=== PATIENT | male | born 1945 | race African-American/Black ===

== ENCOUNTER 2016-08-08 17:14 | Inpatient (IN) | payer OTHER ==
[~2016-08-08] VITALS: Ht 177.8 cm; Wt 108.0 kg
--- NOTE | ~2016-08-08 | HC ---
[facility] [place] [address] CONSULTATION Name: CESAR TONG Room #: 421-P ADM IN M.R.#: [id number] Admission: 08/08/16 Attend Phys: Kareen Joyner MD Discharge: Date of : 43 Report #: [id number] THIS REPORT FOR: //name// CC: Susie Baugh DATE OF SERVICE: 08/09/2016 INDICATION: Dyspnea, CAD. HISTORY OF PRESENT ILLNESS: This is a 71-year-old gentleman presenting with complaints of black tarry stools. He was recently admitted 2 months ago for anemia requiring transfusion of packed red blood cells. During that admission, he was noted to have minimally elevated troponin levels. A nuclear stress test revealed inferior wall infarct with moderate ischemia, ejection fraction of 40%. Mild aortic stenosis and mild mitral regurgitation is noted. At that time, conservative therapy was recommended and a GI workup was deferred for an outpatient setting. He now returns with complaints of black tarry stools with a hemoglobin of 7.4. His last hemoglobin was 9.2 approximately 2 weeks ago. He offers no cardiac complaints of angina, PND or orthopnea. He does have dyspnea with mild to moderate levels of physical exertion. The etiology is probably multifactorial. There is no history of fever, chills, nausea or diarrhea. PAST MEDICAL HISTORY: Nuclear stress test in June 2016 reveals inferior wall infarct with moderate ischemia. Ejection fraction of 40%. Echo reveals mild aortic stenosis and mild mitral regurgitation. Chronic kidney disease, history of GI bleed, not evaluated yet. History of diabetes mellitus, hypertension, hypercholesterolemia. ALLERGIES: None. MEDICATIONS: Include hydralazine 50 mg 3 times a day, Norvasc 10 mg daily, Lasix 80 mg twice daily, Lipitor 20 mg, aspirin once a day and Coreg 25 mg twice a day. SOCIAL HISTORY: Negative for tobacco use. FAMILY HISTORY: Negative for premature CAD. REVIEW OF SYSTEMS: A full 10-point review of systems performed. Only the pertinent positives and negatives are described in the HPI. PHYSICAL EXAMINATION: VITAL SIGNS: Blood pressure is 140/70, heart rate is 70 beats per minute. GENERAL APPEARANCE: This is a mildly overweight male in no acute respiratory [facility] [address] [place] [address] CONSULTATION Name: CESAR TONG Room #: 421-P ADM IN M.R.#: [id number] Admission: 08/08/16 Attend Phys: Kareen Joyner MD Discharge: Date of : 43 Report #: [id number] distress. HEAD AND EYES: Normocephalic. Sclerae are anicteric. ENT: Oral mucosa moist. NECK: Supple. LUNGS: Clear to auscultation. CARDIAC: Regular rate and rhythm, S1, S2 positive, 1/6 systolic murmur. ABDOMEN: Soft, nontender. Bowel sounds positive. EXTREMITIES: No major joint deformities, 1-2+ bilateral lower extremity edema. LABORATORY VALUES: White count is 11.1, hemoglobin 7.3, sodium is 143, creatinine is 6.5, troponin is negative. ASSESSMENT: 1. Coronary artery disease, abnormal nuclear stress test. He is clinically stable with no symptoms of angina or congestion. The plan is to continue with conservative therapy at this time. Aspirin should be resumed, once it is cleared by GI. 2. Anemia/gastrointestinal bleed. This is his second admission for anemia. He should proceed with a GI evaluation. 3. Chronic kidney disease, as per renal. 4. Hypertension, continue with medications. 5. Hypercholesterolemia, continue with statin therapy. Thank you for allowing me to participate in the care of your patient. <ELECTRONICALLY SIGNED> By: Bashir Lam MD 08/10/16 0831 0853 0010 Bashir Lam MD /nt
--- NOTE | ~2016-08-08 | H ---
[facility] [place] [address] HISTORY AND PHYSICAL Name: CESAR TONG Room #: 421-P ADM IN M.R.#: [id number] Admission: 08/08/16 Attend Phys: Kareen Joyner MD Discharge: Date of : 44 Report #: [id number] THIS REPORT FOR: //name// CC: Susie Baugh DATE OF SERVICE: 08/08/2016 ATTENDING PHYSICIAN: Dr. Jericho Rodrigues. PRIMARY CARE PHYSICIAN: Stefano Baugh DO. CHIEF COMPLAINT: Black stools. HISTORY OF PRESENT ILLNESS: The patient is a 71-year-old male who was just hospitalized here in June for shortness of breath. He was noted to be in acute on chronic renal failure with a creatinine of 7.3. He apparently had been followed outpatient by Nephrology and there had been talks that he may need to be starting dialysis. His previous creatinine in May had been 4.6. His medications were adjusted and his creatinine was slightly improving. He did have some elevation of his troponins and underwent a Lexiscan stress test, which showed an inferior wall DE with moderate ischemia. His EF was around 40%. Cardiology did discuss these findings with the patient and apparently the patient refused a catheterization and only wanted medical therapy. He was continued on aspirin. At some point, he developed GI bleed and was noted to have some anemia with black stools and required a blood transfusion. He was seen by GI who did not want to perform any endoscopy until his cardiac issues got addressed and therefore he was discharged after IV diuresis to home with plans to follow up with GI outpatient. He was also going to be followed by Nephrology and possibly have fistula placement. He did come back for another admission earlier in July for CHF exacerbation, felt to be related to dietary noncompliance. Again, he was diuresed and sent home. His creatinine at the time of discharge on 07/27 was 6.1. He came back in to the ER last night after having three dark black stools. He denied any dizziness or lightheadedness. His hemoglobin was 7.4 and prior to that over a week ago was 9.2 and he has been admitted for further evaluation. He has not had any further stools since arrival. He now states that he would be willing to have a heart catheterization, he says he does not remember ever saying that he refused it in the first place and if it needs to be done prior to an EGD; he is willing to have that done. He denies any upper abdominal pain. He denies any nausea or vomiting. PAST MEDICAL HISTORY: Diabetes, hypertension, chronic kidney disease stage V, pancreatitis, obstructive sleep apnea, hyperlipidemia, GERD. [address] [address] HISTORY AND PHYSICAL Name: CESAR TONG Room #: 421-P [facility] IN M.R.#: [id number] Admission: 08/08/16 Attend Phys: Kareen Joyner MD Discharge: Date of : 43 Report #: [id number] PAST SURGICAL HISTORY: None. ALLERGIES: None. HOME MEDICATIONS: Atorvastatin 20 mg at bedtime, fish oil 1000 mg daily, hydralazine 50 mg t.i.d., carvedilol 25 mg b.i.d., amlodipine 10 mg daily, aspirin 81 mg daily, Lasix 80 mg b.i.d., calcium carbonate 500 mg t.i.d., Pepcid 20 mg daily, Nephrocaps softgel 1 tab daily, vitamin D daily and azathioprine 50 mg daily. SOCIAL HISTORY: The patient is an ex-smoker, having quit 5 years ago after smoking a pack and a half a day for 50 years. Denies any alcohol or drug use. He lives with his . He ambulates independently. FAMILY HISTORY: Significant for end-stage renal disease in his daughter who required kidney transplant. His sister is currently on hemodialysis and another nephew also had kidney transplant. REVIEW OF SYSTEMS: Twelve point review of systems was reviewed with the patient, otherwise negative unless stated in the HPI. PHYSICAL EXAMINATION: GENERAL: The patient is an alert male, in no acute distress. VITAL SIGNS: Temperature is 36.2, heart rate 92, respirations 18, blood pressure is 143/83, oxygen 94% on room air. HEENT: PERRLA. Sclerae are nonicteric. Oral mucosa is pink and moist. NECK: Supple, no JVD noted. CARDIOVASCULAR: Normal S1, S2 with a 3/6 systolic ejection murmur. RESPIRATORY: Breath sounds are clear bilaterally, diminished in both bases. Breathing is nonlabored. VASCULAR: 1+ bilateral lower extremity edema. Pedal pulses are 2+. NEUROLOGIC: The patient is alert and oriented x 3. Speech is clear. He is answering questions appropriately and following commands. No focal deficits noted. LABORATORY DATA AND DIAGNOSTICS: WBC is 8.8, hemoglobin 7.4, platelets 205. Sodium 142, potassium 5.6, BUN 17, creatinine 6.5, glucose is 126. INR is 1.1. LFTs are within normal limits. Lipase is 538. UA is negative. Stool for occult blood is positive. EKG is showing sinus rhythm with no ischemic changes and a chest x-ray is showing mild basilar atelectasis with prominent heart and vascularity. ASSESSMENT AND PLAN: 1. Upper gastrointestinal bleed. The patient was given Protonix bolus in the ER. We will start Protonix drip and GI is consulted. He still needs to undergo an EGD, but apparently it was recommended that he have his heart disease issues [facility] [address] [place] [address] HISTORY AND PHYSICAL Name: CESAR TONG Room #: 421-P ADM IN M.R.#: [id number] Admission: 08/08/16 Attend Phys: Kareen Joyner MD Discharge: Date of : 44 Report #: [id number] addressed first. The patient says this has not . He now says he is willing to undergo a heart catheterization if that is what it would take to have an EGD. In the meantime, we will check serial H and H and monitor for any further signs of bleeding. 2. Acute on chronic anemia. We will follow serial H and H and transfuse blood if his hemoglobin continues to drop. 3. Chronic kidney disease stage V. We will consult Nephrology for further recommendations. 4. Hyperkalemia related to kidney disease, was treated in the ER. We will repeat labs in the morning. 5. Diabetes type 2. Blood sugars are stable. Add sliding scale insulin. His oral hypoglycemics were discontinued recently because of recurrent hypoglycemia. 6. Hypertension. Blood pressure is stable. Continue home meds. 7. Chronic diastolic heart failure. He continues to make urine. Resume oral Lasix when able to take p.o. He is not acutely fluid overloaded. 8. Coronary artery disease with recent abnormal stress test. The patient says he is now willing to have the heart catheterization. So, if this needs to be done prior to EGD, we will go ahead and consult cardiology. His troponin is negative and he denies any chest pain. 9. Obstructive sleep apnea. Continue CPAP as at home. We will continue to follow the patient closely throughout the hospitalization and make changes based on clinical status. <ELECTRONICALLY SIGNED> By: QUANG Tapia 08/11/16 0658 0651 0849 QUANG Tapia /melanie
--- NOTE | ~2016-08-08 | P ---
[facility] [place] [address] PROCEDURE REPORT Name: CESAR TONG Room #: 421-P [facility] IN M.R.#: [id number] Admission: 08/08/16 Attend Phys: Kareen Joyner MD Discharge: 08/12/16 Date of : 44 Report #: [id number] THIS REPORT FOR: //name// CC: Susie Rome MD DATE OF SERVICE: 08/11/2016 PROCEDURE PERFORMED: Upper endoscopy with biopsies and bleeding control. HISTORY OF PRESENT ILLNESS: The patient is a 71-year-old male with history of melanotic type stools, drop in hemoglobin. He has received several transfusions since admission. He does have a history of diabetes and coronary artery disease as well as reflux. Plan is for EGD. DESCRIPTION OF PROCEDURE: The risks and benefits of the procedure were explained to the patient, those risks including but not limited to bleeding, perforation, the risk of sedation. He understood these risks and gave informed consent. Sedation was given using propofol per anesthesia. Next, using a standard [employer] upper endoscope, the scope was placed in the patient's mouth and advanced under direct vision through the esophagus, stomach and into the second portion of the duodenum. The esophagus was normal throughout. The GE junction was normal. Overall, the gastric mucosa was normal in the fundus and body; however, there were several small ulcerations noted in the gastric antrum. Also, mild gastritis. Biopsies were obtained to rule out H. pylori. There was no evidence of active bleeding. The pylorus was normal and patent. In the duodenal bulb, there was a moderate duodenitis. As I advanced the scope into the first portion of the duodenum, there was bright red blood noted. This area was washed and aspirated. A single, tiny, actively bleeding AVM was noted only approximately 2 mm in diameter. No ulceration. This was cauterized with a 7-Yi bipolar cautery. No further bleeding was noted. No other AVMs were seen. At this point, the scope was then withdrawn and the procedure terminated. The patient tolerated the procedure well. IMPRESSION: 1. 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 2. Duodenitis. 3. Gastric ulcers with gastritis, no active bleeding. RECOMMENDATIONS: 1. Await biopsy results. [address] [address] PROCEDURE REPORT Name: RANCESAR Room #: 421-P DIS IN M.R.#: [id number] Admission: 08/08/16 Attend Phys: Kareen Joyner MD Discharge: 08/12/16 Date of : 43 Report #: [id number] 2. Observe the patient post-procedure. 3. Continue PPI therapy. 4. Continue to monitor hemoglobin closely. Thank you for allowing me to participate in his care. <ELECTRONICALLY SIGNED> By: Dhaval Locke MD 08/14/16 0820 1459 34 Dhaval Locke MD /melanie
--- NOTE | ~2016-08-08 | EKG ---
[address] [address] ELECTROCARDIOGRAM REPORT Name: CESAR TONG Room #: 421-P ADM IN M.R.#: [id number] Admission: 08/08/16 Attend Phys: Jericho Rodrigues MD Discharge: Date of : 44 Report #: [id number] THIS REPORT FOR: //name// [facility] ED Test Date: 2016-08-08 Test Time: 18:16:40 Pat Name: CESAR TONG Department: Room: 421 Gender: M Technical Assistant: Karri ARMIJO : 1945 Requested By: Aristeo Beal Order Number: [id number] MD: Bashir Lam Measurements Intervals [place] Rate: 71 P: 75 WI: 177 QRS: 47 QRSD: 99 T: 92 QT: 443 QTc: 482 Interpretive Statements Sinus rhythm Left ventricular hypertrophy Nonspecific T abnormalities, lateral leads Borderline prolonged QT interval Compared to ECG 07/24/2016 06:35:17 no change Electronically Signed On 08-09-2016 11:24:13 CDT by Bashir Lam [email or web address] <ELECTRONICALLY SIGNED> By: Bashir Lam MD 08/09/16 1124 15 15 Bashir Lam MD /CARRI
--- NOTE | ~2016-08-08 | S ---
[facility] [place] [address] SURGICAL PATH RPT PROCEDURE Name: LAZARO RAZO Room #: 421-P DIS IN M.R.#: [id number] Admission: 08/08/16 Date of : 43 Discharge: 08/12/16 Report #: [id number] Path Case #: [id number] PATHOLOGY REPORT COLLECTION DATE: 08/11/2016 RECEIVED DATE: 08/12/2016 SUBMITTING PHYS: Dr. Dhaval Locke OTHER PHYS: Dr. Susie Rodrigues SPECIMEN(S) RECEIVED: A.Gastric ulcer bx * * * * * * * * * * * * FINAL DIAGNOSIS: "Gastric ulcer bx", biopsy: - Gastric mucosa with reactive and regenerative changes and mild predominantly chronic inflammation; no dysplasia seen. - Negative H. pylori immunohistochemical stain (block A1); control reacted appropriately. (CLW:gama; d/t: 08/13/2016) PATHOLOGIST: Yael Haynes M.D. REPORT ELECTRONICALLY SIGNED BY: Yael Haynes M.D. DATE/TIME: 08/13/2016 16:26 * * * * * * * * * * * * GROSS PATHOLOGY: Received in formalin labeled "Lazaro Razo and gastric," are 4 segments of gilmore soft tissue measuring 1.3 x 0.3 x 0.2 cm in aggregate dimensions and ranging from 0.3 to 0.4 cm in maximum dimension. The specimen is submitted entirely in cassette A1. (TTL; 08/12/2016) CLINICAL HISTORY: Anemia INITIAL CPT CODE(S): A; 02704, 51088 Professional services performed by [facility] at [facility] [address], [place] [address] Technical services performed by [facility] at [address] [place] [address]. [facility] [address] [place] [address] SURGICAL PATH RPT PROCEDURE Name: LAZARO RAZO Room #: 421-P DIS IN M.R.#: [id number] Admission: 08/08/16 Date of : 43 Discharge: 08/12/16 Report #: [id number] Path Case #: [id number] [facility] [address] [address] PHONE: [phone] DIRECTOR: Bandar Rsoario M.D. * * * END OF REPORT * * *
--- NOTE | ~2016-08-08 | HC ---
[facility] [place] [address] CONSULTATION Name: CESAR TONG Room #: 421-P ADM IN M.R.#: [id number] Admission: 08/08/16 Attend Phys: Kareen Joyner MD Discharge: Date of : 43 Report #: [id number] THIS REPORT FOR: //name// CC: Susie Baugh REASON FOR PRESENTATION: Hematochezia. REASON FOR CONSULTATION: End-stage renal disease. HISTORY OF PRESENT ILLNESS: The patient is well known to us. He is a 71-year-old with two admissions in the last month or so. He presented to the emergency room complaining of hematochezia. He is known to have end-stage renal disease and in the process of being evaluated for an AV fistula and initiation of dialysis. He is known to have diabetes mellitus, hypertension. He is also known to have peripheral arterial disease, hyperlipidemia. In the previous admissions, he admitted to indomethacin usage. This has resulted in an acute decompensation of his chronic kidney disease. His discharge creatinine at that time was in the mid 6. He was supposed to follow up with Dr. Swanson this coming Wednesday to decide about the [facility] plan for his chronic kidney disease. However, he started to have hematochezia in the last few days. He was admitted for further evaluation and management. He had been evaluated by GI in the last admission and plan was to do an EGD on him. His last colonoscopy was at back in 2003 and he had some polyps. Because of the hematochezia, he decided to present to the hospital for further evaluation and management. On the previous admission, he had a Lexiscan that showed some wall hypokinesis and the patient was counseled about having cardiac catheterization; however, he did not want to proceed with that. I was asked to manage his chronic kidney disease. PAST MEDICAL HISTORY: 1. End-stage renal disease. 2. Diabetes mellitus. 3. Peripheral arterial disease. 4. Obstructive sleep apnea. 5. Coronary artery disease. 6. Anemia. 7. Hyperlipidemia. ALLERGIES: No known drug allergies. PERSONAL AND SOCIAL HISTORY: No drug or alcohol abuse. He is . He quit smoking a year ago. He has a daughter and sister who are on dialysis. REVIEW OF SYSTEMS: GENERAL: No fever or chills. CARDIOVASCULAR: No chest pain or palpitation. [facility] [address] [place] [address] CONSULTATION Name: CESAR TONG Room #: 421-P ADM IN M.R.#: [id number] Admission: 08/08/16 Attend Phys: Kareen Joyner MD Discharge: Date of : 44 Report #: [id number] PULMONARY: No cough or hemoptysis. GASTROINTESTINAL: As per the history of present illness. GENITOURINARY: He continues to make urine. MEDICATIONS: 1. Atorvastatin. 2. Hydralazine. 3. Carvedilol. 4. Amlodipine. 5. 6. Lasix. 7. Imuran. PHYSICAL EXAMINATION: GENERAL: The patient is alert, oriented, in no apparent distress. VITAL SIGNS: His most recent blood pressure is 136/67, pulse is 75, temperature 36.8. HEAD AND NECK: No jugular venous distention, no bruit, no thyromegaly. CHEST: Decreased air entry bilaterally. CARDIOVASCULAR: Regular, with no rub detected, systolic murmur present. ABDOMEN: Soft, nontender with no hepatosplenomegaly. LOWER EXTREMITIES: +2 edema. LABORATORY VALUES: Reviewed. Hemoglobin is down from 7.5 to 7.3. Potassium was 5.9, BUN is 118, creatinine is 6.5, there is phosphorous. Albumin is 3.1. Chest x-ray reviewed. ASSESSMENT, IMPRESSION AND PLAN: 1. End-stage renal disease. 2. Diabetes mellitus. 3. Hypertension. 4. Cardiomyopathy with an ejection fraction of 40%. 5. Gastrointestinal bleeding. 6. Discussed at length with the patient. As for now, we will treat his hyperkalemia medically. This was discussed with his . 7. Serial H and H. 8. GI consultation. 9. The patient will need preparation for dialysis and this was previously arranged as an outpatient; however, given the fact that the patient is now having issues with his potassium, GI bleeding we will evaluate. 10. No blood pressure sticks, no IV lines in the left upper extremity. 11. The patient was not aware of his cardiac problems as he stated. I discussed with him the finding of the cardiac team from the previous admission and the fact that he is in need of dialysis. He completely denied any awareness of any previous cardiac problems or discussion with the cardiology regarding the [facility] [address] [place] [address] CONSULTATION Name: CESAR TONG Room #: 421-P ADM IN M.R.#: [id number] Admission: 08/08/16 Attend Phys: Kareen Joyner MD Discharge: Date of : 43 Report #: [id number] cardiac catheterization. We will ask the Cardiology to readdress with him. Pending further GI evaluation. <ELECTRONICALLY SIGNED> By: Diego Rome MD 08/10/16 0745 0829 2220 Susie Moncada MD /nt
[~2016-08-08 17:14] MED LIST: ACTOS 30 MG TAB30 MG PO; ADULT LOW DOSE81 MG PO; AMARYL2 MG PO; AMARYL4 MG PO; AMLODIPINE BESY10 MG PO; ASPIR 8181 MG PO; ATORVASTATIN CA40 MG PO; AZATHIOPRINE50 MG PO; COREG25 MG PO; DEMADEX20 MG PO; FENOFIBRATE160 MG PO; FISH OIL 1,001000 M2 PO; FUROSEMIDE 40 M40 M1 PO; GARLIC1 EACH PO; HYDRALAZINE 2525 MG PO; HYDRALAZINE 5050 MG PO; INDOMETHACIN 5050 M1 PO; LASIX 40 MG TAB40 M1 PO; LASIX 40 MG TAB40 M2 PO; LASIX 80 MG TAB80 MG PO; LIPITOR 20 MG T20 M1 PO; LISINOPRIL10 MG PO; LISINOPRIL20 MG PO; LOPID600 MG PO; LOPRESSOR PO; NEPHROCAPS SOFT1 CAP PO; NORVASC10 MG PO; PEPCID20 MG PO; RENVELA800 MG PO; SIMVASTATIN20 MG PO; TOPROL XL25 MG PO; TOPROL XL50 MG; TRADJENTA5 MG; TUMS CHEWA500 MG/11 PO; VITAMIN D1000 UNI1 PO
[2016-08-08 17:17] VITALS: BP 143/83
[2016-08-08 17:49] LABS: ABSOLUTE NEUTROPHILS 5.6 thou/uL (1.4-8.2); BASOPHILS 1.1 % (0.0-2.0); EOSINOPHILS 2.6 % (0.0-3.0); HEMATOCRIT 22.6 % (42.0-52.0); HEMOGLOBIN 7.4 gm/dL (14.0-18.0); LYMPHOCYTES 21.3 % (24.0-44.0); MANUAL DIFF NO; MCH 24.4 pg (26.0-34.0); MCHC 32.6 g/dL (28.0-37.0); MCV 74.8 fL (80.0-100.0); MONOCYTES 11.5 % (1.0-8.0); PLATELET COUNT 205 thou/uL (150-400); POLYS 63.5 % (36.0-66.0); RBC 3.02 mil/uL (4.50-6.00); RDW 17.9 % (10.5-14.5); WBC 8.8 thou/uL (4.0-11.0)
[2016-08-08 17:56] LABS: ANION GAP 15 mmol/L (7-16); BUN 117 mg/dL (7-18); CALCIUM 6.8 mg/dL (8.5-10.1); CHLORIDE 108 mmol/L (98-107); CO2 19 mmol/L (21-32); CREATININE 6.5 mg/dL (0.6-1.3); GLUCOSE 126 mg/dL (70-99); POTASSIUM 5.6 mmol/L (3.5-5.1); SODIUM 142 mmol/L (136-145)
[2016-08-08 18:00] LABS: ALBUMIN 3.1 g/dL (3.4-5.0); ALKALINE PHOSPHATASE 67 U/L (46-116); DIRECT BILIRUBIN < 0.1 mg/dL (<0.1-0.3); SGOT 23 U/L (15-37); SGPT 34 U/L (30-65); TOTAL BILIRUBIN 0.3 mg/dL (<0.1-1.0); TOTAL PROTEIN 7.4 g/dL (6.4-8.2)
[2016-08-08 18:08] LABS: APTT 27.3 Seconds (24.5-32.8); INR 1.1; PROTIME 11.2 Seconds (9.3-11.4)
[2016-08-08 18:29] LABS: URINE BILIRUBIN NEGATIVE (Negative); URINE BLOOD NEGATIVE (Negative); URINE COLOR YELLOW; URINE GLUCOSE-RANDOM* NEGATIVE (Negative); URINE KETONES NEGATIVE (Negative); URINE NITRITE NEGATIVE (Negative); URINE PROTEIN (DIPSTICK) 1+ (Negative); URINE UROBILINOGEN 0.2 E.U./dl (0.2-1.0)
[2016-08-08 18:38] LABS: BACTERIA 1-9 Few /HPF (None Seen); CASTS None Seen /LPF (None Seen); CRYSTALS None Seen /LPF (None Seen); SQUAMOUS None Seen /LPF (0-3); URINE RBC 0-2 Rare /HPF (0-2); URINE WBC None Seen /HPF (0-5)
[2016-08-08 20:22] VITALS: BP 136/73
[2016-08-08 20:40] VITALS: BP 126/68
[2016-08-09 00:22] LABS: HEMATOCRIT 22.3 % (42.0-52.0); HEMOGLOBIN 7.1 gm/dL (14.0-18.0)
[2016-08-09 03:23] VITALS: BP 138/72
[2016-08-09 03:39] LABS: HEMATOCRIT 23.3 % (42.0-52.0); HEMOGLOBIN 7.3 gm/dL (14.0-18.0); MCH 23.6 pg (26.0-34.0); MCHC 31.4 g/dL (28.0-37.0); MCV 75.1 fL (80.0-100.0); RBC 3.1 mil/uL (4.50-6.00); RDW 17.9 % (10.5-14.5); WBC 11.1 thou/uL (4.0-11.0)
[2016-08-09 04:12] LABS: CALCIUM 6.7 mg/dL (8.5-10.1); CREATININE 6.5 mg/dL (0.6-1.3); POTASSIUM 5.9 mmol/L (3.5-5.1); TROPONIN-I 0.04 ng/mL (<0.04-0.07)
[2016-08-09 08:07] VITALS: BP 137/67
[2016-08-09 16:21] VITALS: BP 135/81
[2016-08-09 20:00] VITALS: BP 143/70
[2016-08-10 04:00] VITALS: BP 129/67
[2016-08-10 06:25] LABS: HEMATOCRIT 22.4 % (42.0-52.0); HEMOGLOBIN 7.1 gm/dL (14.0-18.0); MCH 23.7 pg (26.0-34.0); MCHC 31.9 g/dL (28.0-37.0); MCV 74.2 fL (80.0-100.0); RBC 3.01 mil/uL (4.50-6.00); RDW 18.1 % (10.5-14.5); WBC 8.5 thou/uL (4.0-11.0)
[2016-08-10 06:44] LABS: ALBUMIN 2.9 g/dL (3.4-5.0); CALCIUM 6.4 mg/dL (8.5-10.1); CREATININE 6.4 mg/dL (0.6-1.3); PHOSPHORUS 5.5 mg/dL (2.5-4.9); POTASSIUM 4.6 mmol/L (3.5-5.1)
[2016-08-10 08:02] VITALS: BP 142/69
[2016-08-10 09:51] VITALS: BP 142/69
[2016-08-10 16:54] VITALS: BP 152/86
[2016-08-10 20:00] VITALS: BP 130/70
[2016-08-11 04:00] VITALS: BP 137/60
[2016-08-11 05:50] LABS: HEMATOCRIT 21.9 % (42.0-52.0); HEMOGLOBIN 7.1 gm/dL (14.0-18.0); MCH 23.9 pg (26.0-34.0); MCHC 32.3 g/dL (28.0-37.0); MCV 74.1 fL (80.0-100.0); RBC 2.95 mil/uL (4.50-6.00); RDW 17.7 % (10.5-14.5); WBC 8.4 thou/uL (4.0-11.0)
[2016-08-11 06:10] LABS: ALBUMIN 2.9 g/dL (3.4-5.0); CALCIUM 6.3 mg/dL (8.5-10.1); CREATININE 6.4 mg/dL (0.6-1.3); PHOSPHORUS 6.6 mg/dL (2.5-4.9); POTASSIUM 4.2 mmol/L (3.5-5.1)
[2016-08-11 08:43] VITALS: BP 169/84
[2016-08-11 20:00] VITALS: BP 134/79
[2016-08-12 04:30] VITALS: BP 143/75
[2016-08-12 05:18] LABS: HEMATOCRIT 30.5 % (42.0-52.0); MCH 24.7 pg (26.0-34.0); MCHC 32.8 g/dL (28.0-37.0); MCV 75.3 fL (80.0-100.0); RBC 4.05 mil/uL (4.50-6.00); RDW 18.4 % (10.5-14.5); WBC 8.5 thou/uL (4.0-11.0)
[2016-08-12 05:51] LABS: CALCIUM 6.9 mg/dL (8.5-10.1); CREATININE 5.3 mg/dL (0.6-1.3); POTASSIUM 4.1 mmol/L (3.5-5.1)
[2016-08-12 08:17] VITALS: BP 155/85
[2016-08-12 10:48] VITALS: BP 155/85
[2016-08-12] MEDS ORDERED: HYDROCODON-ACE1 EAC7 PO (11:22)
[2016-08-12] MEDS ORDERED: NEXIUM40 MG PO (11:22)
[2016-08-12] MEDS ORDERED: PREMARIN 0.3MG0.3 MG PO (11:22)
[2016-08-12 12:09] VITALS: BP 155/85
[2016-08-12 12:51] VITALS: BP 155/85
[2016-08-12 14:08] VITALS: BP 155/85
== END 2016-08-12 13:30 | disposition home or self-care (01) | DRG 377 ==
LOC: ER 17:14 → EROBS 19:22 → 4E 19:22
PROVIDERS: Family Medicine; Hospitalist; Internal Medicine Nephrology; Nurse Practitioner; Nurse Practitioner Acute Care
DX: K31.811 Angiodysplasia of stomach and duodenum with bleeding (principal); N18.6 End stage renal disease; I13.2 Hypertensive heart and chronic kidney disease with heart failure and with stage 5 chronic kidney disease, or end stage renal disease; D62 Acute posthemorrhagic anemia; I50.32 Chronic diastolic (congestive) heart failure; I42.9 Cardiomyopathy, unspecified; K25.4 Chronic or unspecified gastric ulcer with hemorrhage; K29.80 Duodenitis without bleeding; K29.70 Gastritis, unspecified, without bleeding; E78.5 Hyperlipidemia, unspecified; E87.5 Hyperkalemia; E11.22 Type 2 diabetes mellitus with diabetic chronic kidney disease; E11.51 Type 2 diabetes mellitus with diabetic peripheral angiopathy without gangrene; G47.33 Obstructive sleep apnea (adult) (pediatric); I25.10 Atherosclerotic heart disease of native coronary artery without angina pectoris; E78.00 Pure hypercholesterolemia, unspecified; K21.9 Gastro-esophageal reflux disease without esophagitis; Z87.891 Personal history of nicotine dependence; Z79.4 Long term (current) use of insulin; Z79.899 Other long term (current) drug therapy; Z84.2 Family history of other diseases of the genitourinary system; Z82.49 Family history of ischemic heart disease and other diseases of the circulatory system; Z80.0 Family history of malignant neoplasm of digestive organs
CPT/HCPCS: 10183; 32100; 62110; 62900; 70005

== ENCOUNTER 2016-10-17 12:10 | Emergency (ER) | payer OTHER ==
[~2016-10-17] VITALS: Ht 177.8 cm; Wt 103.9 kg
[~2016-10-17 12:10] MED LIST changes: +HYDROCODON-ACE1 EAC7 PO; +NEXIUM40 MG PO; +PREMARIN 0.3MG0.3 MG PO
[2016-10-17] MEDS ORDERED: FLOMAX0.4 MG PO (13:19)
[2016-10-17 14:37] LABS: CALCIUM 8.8 mg/dL (8.5-10.1); CREATININE 7.4 mg/dL (0.7-1.3); POTASSIUM 4.4 mmol/L (3.5-5.1)
[2016-10-17 14:41] LABS: URINE BLOOD 2+ (Negative); URINE COLOR YELLOW; URINE GLUCOSE-RANDOM* NEGATIVE (Negative); URINE KETONES NEGATIVE (Negative); URINE LEUKOCYTES-REFLEX 2+ (Negative); URINE PROTEIN (DIPSTICK) 3+ (Negative); URINE SPECIFIC GRAVITY >= 1.030 (1.003-1.035)
[2016-10-17 14:49] LABS: ICTOTEST (BILI CONFIRMATORY) Negative (Negative); URINE BILIRUBIN NEGATIVE (Negative)
[2016-10-17 15:14] LABS: HEMATOCRIT 29.5 % (42.0-52.0); HEMOGLOBIN 9.3 gm/dL (14.0-18.0); MCH 22.7 pg (26.0-34.0); MCHC 31.5 g/dL (28.0-37.0); RBC 4.09 mil/uL (4.50-6.00); RDW 17.6 % (10.5-14.5); WBC 27.2 thou/uL (4.0-11.0)
[2016-10-17 15:21] LABS: CASTS None Seen /LPF (None Seen); SQUAMOUS 4-10 Moderate /LPF (0-3); URINE WBC-REFLEX >25 Many /HPF (0-5)
[2016-10-17 15:24] LABS: AMORPHOUS URATES Few /LPF (None Seen)
== END 2016-10-17 16:44 | disposition home or self-care (01) ==
LOC: ER 12:10
PROVIDERS: Emergency Medicine
DX: E11.22 Type 2 diabetes mellitus with diabetic chronic kidney disease (principal); I12.0 Hypertensive chronic kidney disease with stage 5 chronic kidney disease or end stage renal disease; N18.6 End stage renal disease; N40.0 Benign prostatic hyperplasia without lower urinary tract symptoms; K59.00 Constipation, unspecified; D72.829 Elevated white blood cell count, unspecified; Z87.891 Personal history of nicotine dependence

== ENCOUNTER 2016-10-24 13:33 | Emergency (ER) | payer OTHER ==
[~2016-10-24] VITALS: Ht 177.8 cm; Wt 103.9 kg
--- NOTE | ~2016-10-24 | EKG ---
[place] [address] [facility] [place] [address] ELECTROCARDIOGRAM REPORT Name: CESAR TONG Room #: DEP RICHARD Lockhart#: [id number] Admission: 10/24/16 Attend Phys: Discharge: 10/24/16 Date of : 43 Report #: [id number] THIS REPORT FOR: //name// [facility] ED Test Date: 2016-10-24 Test Time: 13:41:26 Pat Name: CESAR TONG Department: Room: Gender: M Exterminator Termite: Amelia Whitfield : 1945 Requested By: Roe Samuel Order Number: [id number] MD: Nader Gaxiola Measurements Intervals [place] Rate: 77 P: 72 MN: 162 QRS: 39 QRSD: 104 T: 59 QT: 404 QTc: 458 Interpretive Statements Sinus rhythm Atrial premature complex Probable left ventricular hypertrophy Compared to ECG 08/08/2016 18:16:40 Atrial premature complex(es) now present Electronically Signed On 10-25-2016 15:56:38 CDT by Nader Gaxiola [email or web address] <ELECTRONICALLY SIGNED> By: Nader Gaxiola MD, [facility] 10/25/16 1556 1341 40 Nader Gaxiola MD, FACC /EPI
[~2016-10-24 13:33] MED LIST changes: +FLOMAX0.4 MG PO
[2016-10-24 13:58] LABS: HEMATOCRIT 27.8 % (42.0-52.0); HEMOGLOBIN 8.8 gm/dL (14.0-18.0); MCH 22.7 pg (26.0-34.0); MCHC 31.6 g/dL (28.0-37.0); MCV 71.7 fL (80.0-100.0); PLATELET COUNT 264 thou/uL (150-400); RBC 3.87 mil/uL (4.50-6.00); RDW 17.2 % (10.5-14.5); WBC 12.4 thou/uL (4.0-11.0)
[2016-10-24 14:01] LABS: MANUAL DIFF YES
[2016-10-24 14:09] LABS: ABG SAMPLE TYPE ARTERIAL; BE(vivo) 1.3 mmol/L (-2 to +3); HCO3 25.7 mmol/L (22.0-26.0); LACTATE 0.93 mmol/L (0.5-2.0); O2(CT) 12.6 mL/dL (15.0-23.0); O2Hb 92.1 % (92.0-98.0); PCO2 39.8 mmHg (35.0-45.0); PO2 72.6 mmHg (80.0-100.0); STICK SITE R.RADIAL; pH 7.428 (7.360-7.450); tCO2 26.9 mmol/L (24.0-30.0)
[2016-10-24 14:11] LABS: CALCIUM 8.6 mg/dL (8.5-10.1); CREATININE 6.7 mg/dL (0.7-1.3); POTASSIUM 3.7 mmol/L (3.5-5.1)
[2016-10-24 14:18] LABS: ALBUMIN 2.6 g/dL (3.4-5.0); TOTAL BILIRUBIN 0.4 mg/dL (<0.1-1.0); TROPONIN-I 0.1 ng/mL (<0.04-0.07)
[2016-10-24 14:47] LABS: ABSOLUTE NEUTROPHILS 8.7 thou/uL (1.4-8.2); NUCLEATED RBCS 1 /100WBC; PLATELET ESTIMATE NORMAL; TOTAL CELL COUNT 100
[2016-10-24 14:48] LABS: ANISOCYTOSIS 1+; HYPOCHROMASIA 2+; MICROCYTES 3+
[2016-10-24] MEDS ORDERED: LEVAQUIN 750 M750 MG PO (17:03)
[2016-10-24] MEDS ORDERED: PROVENTIL HFA6.7 G1 INH (17:03)
== END 2016-10-24 17:45 | disposition home or self-care (01) ==
LOC: ER 13:33
PROVIDERS: Physician Assistant
DX: J18.9 Pneumonia, unspecified organism (principal); D72.829 Elevated white blood cell count, unspecified; I12.9 Hypertensive chronic kidney disease with stage 1 through stage 4 chronic kidney disease, or unspecified chronic kidney disease; E11.22 Type 2 diabetes mellitus with diabetic chronic kidney disease; N18.9 Chronic kidney disease, unspecified; Z87.891 Personal history of nicotine dependence

== ENCOUNTER 2017-02-07 15:44 | Emergency (ER) | payer OTHER ==
[~2017-02-07] VITALS: Ht 177.8 cm; Wt 102.5 kg
[~2017-02-07 15:44] MED LIST changes: +LEVAQUIN 750 M750 MG PO; +PROVENTIL HFA6.7 G1 INH
[2017-02-07] MEDS ORDERED: COREG25 MG PO (16:01)
[2017-02-07] MEDS ORDERED: TRADJENTA5 MG (16:02)
[2017-02-07] MEDS ORDERED: ASPIR 8181 MG PO (16:02)
[2017-02-07] MEDS ORDERED: AMLODIPINE BESY10 MG PO (16:02)
[2017-02-07] MEDS ORDERED: CILOSTAZOL 100100 M1 PO (16:03)
[2017-02-07] MEDS ORDERED: RENVELA800 MG PO (16:04)
[2017-02-07] MEDS ORDERED: NORCO 5-325 TA1 EACH PO (16:29)
== END 2017-02-07 16:32 | disposition home or self-care (01) ==
LOC: ER 15:44
DX: S69.92XA Unspecified injury of left wrist, hand and finger(s), initial encounter (principal); I12.9 Hypertensive chronic kidney disease with stage 1 through stage 4 chronic kidney disease, or unspecified chronic kidney disease; E11.22 Type 2 diabetes mellitus with diabetic chronic kidney disease; N18.9 Chronic kidney disease, unspecified; Z87.891 Personal history of nicotine dependence; X58.XXXA Exposure to other specified factors, initial encounter; Y93.89 Activity, other specified; Y92.89 Other specified places as the place of occurrence of the external cause; Y99.8 Other external cause status

== ENCOUNTER 2017-02-19 11:24 | Inpatient (IN) | payer OTHER ==
[~2017-02-19] VITALS: Ht 177.8 cm; Wt 105.7 kg
--- NOTE | ~2017-02-19 | EKG ---
[address] [address] ELECTROCARDIOGRAM REPORT Name: CESAR TONG Room #: 421-P ADM IN M.R.#: [id number] Admission: 02/19/17 Attend Phys: Shayy Palomares Discharge: Date of : 43 Report #: [id number] THIS REPORT FOR: //name// [facility] ED Test Date: 2017-02-19 Test Time: 11:28:23 Pat Name: CESAR TONG Department: Room: 421 Gender: M Lapel Baster: KKODJOVI : 1945 Requested By: Mel Hayes Order Number: [id number] MD: Chandra Calles Measurements Intervals [place] Rate: 86 P: 72 [place]: 181 QRS: 47 QRSD: 103 T: 109 QT: 390 QTc: 467 Interpretive Statements Sinus rhythm Abnormal R-wave progression, early transition Nonspecific repol abnormality, lateral leads Minimal ST elevation, anterior leads Compared to ECG 10/24/2016 13:41:26 Early repolarization now present ST (T wave) deviation now present Atrial premature complex(es) no longer present Electronically Signed On 02-19-2017 21:03:28 CDT by Chandra Calles [email or web address] <ELECTRONICALLY SIGNED> By: Chandra Calles MD 02/19/17 2103 1128 1128 Chandra Calles MD /EPI
--- NOTE | ~2017-02-19 | S ---
[facility] [place] [address] [place] [address] SURGICAL PATH RPT PROCEDURE Name: LAZARO RAZO Room #: 421-P DIS IN M.R.#: [id number] Admission: 02/19/17 Date of : 43 Discharge: 02/20/17 Report #: [id number] Path Case #: [id number] PATHOLOGY REPORT COLLECTION DATE: 02/19/2017 RECEIVED DATE: 02/19/2017 SUBMITTING PHYS: Dr. Shayy Palomares OTHER PHYS: Dr. Yanira Locke SPECIMEN(S) RECEIVED: A.Gastritis bx * * * * * * * * * * * * FINAL DIAGNOSIS: Gastric mucosa, gastritis, endoscopic biopsy: - Mild reactive gastropathy. - Negative for intestinal metaplasia or atrophy. - Negative for Helicobacter pylori. (IUV:elver; 02/23/2017) COMMENT: Helicobacter pylori immunohistochemical stain performed on block A1 - Negative. PATHOLOGIST: Candi Adamson M.D. REPORT ELECTRONICALLY SIGNED BY: Candi Adamson M.D. DATE/TIME: 02/23/2017 15:15 * * * * * * * * * * * * GROSS PATHOLOGY: Received in formalin labeled "Lazaro Razo, gastritis biopsy," and additionally labeled on the requisition as, "R/O H. pylori," is a segment of gilmore soft tissue measuring 0.3 cm in maximum dimension. The specimen is submitted entirely in cassette A1. (DAC; 02/22/2017) CLINICAL HISTORY: Pre-op diagnosis: GI bleed Post-op diagnosis: Gastritis R/O H. pylori INITIAL CPT CODE(S): A; 31537, 75955 Professional services performed by [facility] at [facility] [address] [place] [address] SURGICAL PATH RPT PROCEDURE Name: RANLAZARO Room #: 421-P DIS IN M.R.#: [id number] Admission: 02/19/17 Date of : 43 Discharge: 02/20/17 Report #: [id number] Path Case #: [id number] [address] [facility] [place] [address] Technical services performed by [facility] at [address] [place] [address], [facility] [address] [address]. [facility] [address] [place] [address] PHONE: [phone] DIRECTOR: Bandar Rosario M.D. * * * END OF REPORT * * *
--- NOTE | ~2017-02-19 | P ---
[facility] [place] [address] [place] [address] PROCEDURE REPORT Name: CESAR TONG Room #: 421-P ADM IN M.R.#: [id number] Admission: 02/19/17 Attend Phys: Shayy Palomares Discharge: Date of : 43 Report #: [id number] THIS REPORT FOR: //name// CC: Shayy Baugh DATE OF SERVICE: 02/19/2017 PROCEDURE PERFORMED: Upper endoscopy with biopsies and bleeding control. HISTORY OF PRESENT ILLNESS: The patient is a 71-year-old male with recent dark stools for several days, admitted with anemia. Admit hemoglobin is 6.8. He is currently being transfused packed cells. DESCRIPTION OF PROCEDURE: The risks and benefits of the procedure were explained to the patient, those risks including but not limited to bleeding, perforation, the risk of sedation. He understood these risks and gave informed consent. Sedation was given using propofol per anesthesia. Next, using a standard DICOM Gridinon upper endoscope, the scope was placed in the patient's mouth and advanced under direct vision through the esophagus, stomach and into the second portion of the duodenum. The esophagus was normal throughout. The GE junction was normal. In the stomach, there was a mild gastritis with several erosions noted in the antrum. Biopsies were obtained to rule out H. pylori. The pylorus was normal and patent. In the duodenal bulb, there were several ulcerations, none of which were actively bleeding; however, there was an actively bleeding AVM and this was cauterized with 7-Mohawk bipolar cautery. No further bleeding was noted. In the second portion of the duodenum, second bleeding AVM with mild oozing was noted, also treated with 7-Mohawk bipolar cautery. There was no further bleeding after cauterization. The scope was then withdrawn and the procedure terminated. The patient tolerated the procedure well. IMPRESSION: 1. 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 2. Duodenal ulcers. No active bleeding. 3. Gastritis with gastric erosions. 4. Otherwise, normal upper endoscopy. RECOMMENDATIONS: 1. Await biopsy results. 2. Recommend PPI therapy and continuing to hold aspirin. 3. We will continue to monitor hemoglobin. [facility] [address] [place] [address] PROCEDURE REPORT Name: RANCESAR Room #: 421-P ADM IN M.R.#: [id number] Admission: 02/19/17 Attend Phys: Shayy Palomares Discharge: Date of : 43 Report #: [id number] Thank you for allowing me to participate in his care. By: 1601 51 Dhaval Locke MD /nt
--- NOTE | ~2017-02-19 | HC ---
[facility] [place] [address] [place] [address] CONSULTATION Name: CESAR TONG Room #: 421-P ADM IN M.R.#: [id number] Admission: 02/19/17 Attend Phys: Shayy Palomares Discharge: Date of : 43 Report #: [id number] THIS REPORT FOR: //name// CC: Shayy Baugh DATE OF SERVICE: 02/19/2017 INDICATION: Coronary artery disease. HISTORY OF PRESENT ILLNESS: This is a 71-year-old gentleman presenting with several days of weakness and dyspnea. He also reports having dark stools. He denies any episodes of chest pains, fever, chills, or diarrhea. In the ER, he was noted to have a hemoglobin of 6.8 and is currently undergoing a transfusion. He feels symptomatic improvement after the blood transfusion. We are asked to evaluate the patient for a minimally elevated troponin level. There is no history of PND or orthopnea. He is undergoing dialysis for end-stage renal disease. 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 A strategy of medical therapy was recommended as he has been admitted on several occasions with GI bleeding. Echo from July 2016, reveals normal LV systolic function with mild and mild MR. History of GI bleeding in July revealing duodenal AVM, undergoing cauterization. History of end-stage renal disease, hypertension, hypercholesterolemia, and diabetes mellitus. ALLERGIES: None. CURRENT MEDICATIONS: Include Flomax, hydralazine 50 mg 3 times a day, Lasix, Lipitor 20 mg, Nexium, and aspirin. SOCIAL HISTORY: Negative for tobacco use. FAMILY HISTORY: Negative for premature CAD. REVIEW OF SYSTEMS: A full 10-point review of systems performed. Only the pertinent positives and negatives are described in the HPI. PHYSICAL EXAMINATION: VITAL SIGNS: Blood pressure is 100/60, heart rate 76 beats per minute. GENERAL APPEARANCE: This is a well-developed, well-nourished male, in no acute respiratory distress. HEAD AND EYES: Normocephalic. Sclerae are anicteric. ENT: Oral mucosa moist. NECK: Supple. [facility] [address] [place] [address] CONSULTATION Name: CESAR TONG Room #: 421-P [facility] IN M.R.#: [id number] Admission: 02/19/17 Attend Phys: Shayy Palomares Discharge: Date of : 43 Report #: [id number] LUNGS: Clear to auscultation. CARDIAC: Regular rate and rhythm. 2/6 systolic murmur. ABDOMEN: Soft, nontender. EXTREMITIES: No major joint deformities. Trace ankle edema. NEUROLOGIC: Alert and oriented x3. ECG reveals sinus rhythm, LVH, nonspecific ST segment abnormalities, no significant change compared to prior tracings. LABORATORY VALUES: Hemoglobin is 6.8. Troponin is 0.12 and then 0.11. Creatinine is 12.1. ASSESSMENT AND PLAN: 1. Gastrointestinal bleed/anemia, his symptoms are probably related to anemia and have resolved with a transfusion. He should continue with a GI evaluation to rule out active bleeding at this time. 2. Coronary artery disease/history of abnormal nuclear stress test, minimally elevated troponin level in the indeterminate range. The significance is unclear given his underlying renal disease. He is not exhibiting any cardiac symptoms and the ECG does not show any new ST segment changes. The plan is to continue with medical therapy. 3. Hypertension. The blood pressure is on the low side. We would hold his medications for now. 4. Hypercholesterolemia, continue with statin therapy. 5. End-stage renal disease, as per renal. Thank you for allowing me to participate in the care of your patient. <ELECTRONICALLY SIGNED> By: Bashir Lam MD 02/20/17 0736 1605 03 Bashir Lam MD /nt
[~2017-02-19 11:24] MED LIST changes: +CILOSTAZOL 100100 M1 PO; +NORCO 5-325 TA1 EACH PO
[2017-02-19 11:25] VITALS: BP 93/53
[2017-02-19 12:13] LABS: HEMATOCRIT 21.5 % (42.0-52.0); HEMOGLOBIN 6.8 gm/dL (14.0-18.0)
[2017-02-19 12:15] LABS: MCHC 31.4 g/dL (28.0-37.0); MCV 79.7 fL (80.0-100.0); PLATELET COUNT 160 thou/uL (150-400); RDW 20.6 % (10.5-14.5); WBC 8.7 thou/uL (4.0-11.0)
[2017-02-19 12:17] LABS: MANUAL DIFF YES
[2017-02-19 12:57] LABS: CALCIUM 8.6 mg/dL (8.5-10.1); CREATININE 12.1 mg/dL (0.7-1.3); POTASSIUM 4.2 mmol/L (3.5-5.1)
[2017-02-19 13:05] LABS: TROPONIN-I 0.12 ng/mL (<0.04-0.07)
[2017-02-19 13:24] LABS: ABSOLUTE NEUTROPHILS 5.9 thou/uL (1.4-8.2); ANISOCYTOSIS 2+; HYPOCHROMASIA 2+; LARGE PLATELETS FEW; MICROCYTES 2+; PLATELET ESTIMATE NORMAL; POLYCHROMASIA 1+; TOTAL CELL COUNT 100
[2017-02-19 14:12] VITALS: BP 105/66; BP 114/69; BP 121/64; BP 121/65; BP 126/70
[2017-02-19 14:24] VITALS: BP 93/53
[2017-02-19 15:17] VITALS: BP 123/68
[2017-02-19 16:35] VITALS: BP 118/75
[2017-02-19 18:03] LABS: HEMATOCRIT 24.1 % (42.0-52.0); HEMOGLOBIN 7.7 gm/dL (14.0-18.0)
[2017-02-19 20:30] VITALS: BP 118/75
[2017-02-19 23:53] LABS: HEMATOCRIT 25.2 % (42.0-52.0); HEMOGLOBIN 8.1 gm/dL (14.0-18.0)
[2017-02-20 03:58] VITALS: BP 107/70
[2017-02-20 06:05] LABS: HEMATOCRIT 24.5 % (42.0-52.0); HEMOGLOBIN 7.9 gm/dL (14.0-18.0); MCH 25.2 pg (26.0-34.0); MCV 78.8 fL (80.0-100.0); RBC 3.11 mil/uL (4.50-6.00); RDW 19.8 % (10.5-14.5); WBC 7.4 thou/uL (4.0-11.0)
[2017-02-20 08:07] VITALS: BP 113/73
[2017-02-20 12:38] VITALS: BP 113/73
== END 2017-02-20 13:15 | disposition home or self-care (01) | DRG 377 ==
LOC: ER 11:24 → EROBS 12:39 → 4E 15:27
PROVIDERS: Emergency Medicine; Hospitalist; Nurse Practitioner
PROC: 30233N1 Transfusion of Nonautologous Red Blood Cells into Peripheral Vein, Percutaneous Approach (ICD-10-PCS; principal; 2017-02-19)
PROC: 0DB68ZX Excision of Stomach, Via Natural or Artificial Opening Endoscopic, Diagnostic (ICD-10-PCS; principal; 2017-02-19)
PROC: 0W3P8ZZ Control Bleeding in Gastrointestinal Tract, Via Natural or Artificial Opening Endoscopic (ICD-10-PCS; principal; 2017-02-19)
DX: K31.811 Angiodysplasia of stomach and duodenum with bleeding (principal); N18.6 End stage renal disease; D62 Acute posthemorrhagic anemia; I50.32 Chronic diastolic (congestive) heart failure; I13.2 Hypertensive heart and chronic kidney disease with heart failure and with stage 5 chronic kidney disease, or end stage renal disease; K25.4 Chronic or unspecified gastric ulcer with hemorrhage; K26.9 Duodenal ulcer, unspecified as acute or chronic, without hemorrhage or perforation; E66.9 Obesity, unspecified; M10.9 Gout, unspecified; G47.33 Obstructive sleep apnea (adult) (pediatric); I25.10 Atherosclerotic heart disease of native coronary artery without angina pectoris; E11.22 Type 2 diabetes mellitus with diabetic chronic kidney disease; I95.9 Hypotension, unspecified; E78.00 Pure hypercholesterolemia, unspecified; I25.2 Old myocardial infarction; Z87.891 Personal history of nicotine dependence; Z79.82 Long term (current) use of aspirin; Z86.010 Personal history of colon polyps; Z68.33 Body mass index [BMI] 33.0-33.9, adult; Z79.899 Other long term (current) drug therapy; Z82.49 Family history of ischemic heart disease and other diseases of the circulatory system; Z80.0 Family history of malignant neoplasm of digestive organs
CPT/HCPCS: 10183; 32100; 62110; 62900; 70005

== ENCOUNTER 2017-04-20 17:07 | Emergency (ER) | payer OTHER ==
[~2017-04-20] VITALS: Ht 177.8 cm; Wt 104.3 kg
[2017-04-20] MEDS ORDERED: ULTRAM 50MG TAB50 MG PO (18:17)
== END 2017-04-20 18:23 | disposition home or self-care (01) ==
LOC: ER 17:07
DX: M25.532 Pain in left wrist (principal); E11.22 Type 2 diabetes mellitus with diabetic chronic kidney disease; I12.9 Hypertensive chronic kidney disease with stage 1 through stage 4 chronic kidney disease, or unspecified chronic kidney disease; N18.9 Chronic kidney disease, unspecified; G47.30 Sleep apnea, unspecified; Z87.891 Personal history of nicotine dependence